=== PATIENT | female | born 1980 ===

== ENCOUNTER 2017-08-25 15:00 | Emergency (ER) | payer MEDICAID ==
[2017-08-25 15:05] VITALS: PULSE 78; RESP 16; O2SAT 99
--- NOTE | 2017-08-25 15:36 | ED PDOC ---
HPI: Psych/Substance Abuse Time Seen by Provider: 08/25/17 15:07 Chief Complaint (Nursing): Psychiatric Evaluation Chief Complaint (Provider): Overdose History Per: Patient History/Exam Limitations: no limitations Onset/Duration Of Symptoms: Hrs Suicide/Self Injury Attempted (Context): Ingestion Modifying Factor(s): None Severity: None Associated Symptoms: Depression, Suicidal Thoughts, Suicidal Plan Additional Complaint(s): 37 year old female is brought into the emergency department by emergency medical services for overdose. The patient reports that on August 13 she found out that her significant other had been cheating on her and she gradually became more and more depressed, so today she took 3 tabs of 300 mg gabapentin in an attempt to overdose. She reports that around 3 pm she started having a headache and so she took naprosyn. In ED patient only reports having chills, feelings of anxiety as well as feeling very sleepy. Denies hallucinations, homicidal ideations, history of suicidal attempts, history of psychiatric disease, alcohol/drug use. 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 - Family History Family History: States: Unknown Family Hx - Social History Current smoker - smoking cessation education provided: No Ex-Smoker (has not smoked in the last 12 months): No Alcohol: None Drugs: Denies - Allergies Allergies/Adverse Reactions: Allergies Allergy/AdvReac Type Severity Reaction Status Date / Time shrimp Allergy RASH Verified 08/25/17 15:02 tramadol Allergy RASH Verified 08/25/17 15:02 Review of Systems Constitutional: Positive for: Chills Neurological: Positive for: Headache Psych: Positive for: Anxiety, Suicidal ideation Physical Exam - Reviewed Nursing Documentation Reviewed: Yes Vital Signs Reviewed: Yes - Physical Exam Appears: Positive for: Non-toxic, In Acute Distress (Acute Psychiatric Distress ; tearful and crying in ED) Eye Exam: Positive for: Normal appearance, EOMI, PERRL, Conjunctival injection Neurologic/Psych: Positive for: Alert (AAO x3), Oriented, Mood/Affect (depressed ), Other (normal speech). Negative for: Motor/Sensory Deficits - Laboratory Results Result Diagrams: 08/25/17 15:40 08/25/17 15:40 - ECG ECG Rhythm: Positive for: Normal QRS, Normal ST Segment, Sinus Rhythm Rate: 78 O2 Sat by Pulse Oximetry: 99 (RA) Pulse Ox Interpretation: Normal Medical Decision Making Medical Decision Makin Initial Impression 37 year old female presenting with gabapentin overdose and suicidal attempt Initial Plan: * EKG * Acetaminophen * Alcohol Serum * CMP * Drug Screen * Salicylate * Poison Control * Upreg * Udip * CBC * Partial Thromboplastin * Prothrombin Time * ED 1:1 Observation * Reevaluation 1515 Discussed with Abhishek at [facility], observe for hypotension and [employer] depression as well as typical overdose work up for co-ingestions. Likely unharmful dose of gabapentin. 1700 No new symptoms. Medically stable. Evaluated by GAEL Joaquin. Stable for dc. Documented by Rere Barth acting as a scribe for Sheri Trotter MD. All medical record entries made by the Scribe were at my direction and personally dictated by me. I have reviewed the chart and agree that the record accurately reflects my personal performance of the history, physical exam, medical decision making, and the department course for this patient. I have also personally directed, reviewed, and agree with the discharge instructions and disposition. Disposition - Clinical Impression Clinical Impression: Adjustment disorder - Disposition Referrals: [facility] [Outside] Disposition: Routine/Home Disposition Time: 17:00 Condition: IMPROVED Instructions: Adjustment Disorder, Stress Print Language: GREENLANDIC
[2017-08-25 15:52] LABS: BASO % 0.5 % (0.0-2.0); EOS % 0.2 % (0.0-4.0); HEMOGLOBIN 11.1 g/dL (12.0-16.0); LYMPH # 1.9 K/uL (1.0-4.3); LYMPH % 25.3 % (20.0-40.0); MEAN CORPUSCULAR HEMOGLOBIN 23.9 pg (27.0-31.0); MEAN CORPUSCULAR HGB CONC 32.3 g/dL (33.0-37.0); MEAN PLATELET VOLUME 8.9 fl (7.2-11.7); MONO # 0.7 K/uL (0.0-0.8); MONO % 9.3 % (0.0-10.0); NEUT # 4.7 K/uL (1.8-7.0); NEUT % 64.7 % (50.0-75.0); NRBC % 0.1 % (0.0-0.0); RBC 4.65 Mil/uL (3.80-5.20); RED CELL DISTRIBUTION WIDTH 18.1 % (11.5-14.5); WHITE BLOOD COUNT 7.3 K/uL (4.8-10.8)
[2017-08-25 16:00] LABS: ACETAMINOPHEN < 10.0 ug/ml (10.0-30.0); ALB/GLOB RATIO 1.3 (1.0-2.1); ALBUMIN 4.4 g/dL (3.5-5.0); ALT/SGPT 32 U/L (9-52); AST/SGOT 31 U/L (14-36); BLOOD UREA NITROGEN 13 mg/dl (7-17); CALCIUM 9.4 mg/dL (8.4-10.2); GFR AFRICAN-AMERICAN > 60; GFR NON-AFRICAN AMERICAN > 60; SALICYLATE < 1.0 mg/dl
[2017-08-25 16:03] LABS: INR 1.1 (0.9-1.2); PARTIAL THROMBOPLASTIN TIME 29.1 Seconds (25.6-37.1)
[2017-08-25 16:54] VITALS: BP 136/82; TEMP 98.4
[2017-08-25 17:20] LABS: BARBITURATES, UR NEGATIVE (NEGATIVE); BENZODIAZEPINES, UR NEGATIVE (NEGATIVE); OPIATES, UR NEGATIVE (NEGATIVE); PHENCYCLIDINE, UR NEGATIVE (NEGATIVE)
--- NOTE | 2017-08-26 09:35 | CARD ---
APPROVED REPORT EKG Measurement Heart [id number] <Conclusion> Normal sinus rhythm Normal ECG
== END 2017-08-25 17:23 | disposition home or self-care (01) ==
LOC: H.ER 15:00
DX: F43.20 Adjustment disorder, unspecified (principal); G89.29 Other chronic pain